=== PATIENT | male | born 1985 | race Caucasian/White ===

== ENCOUNTER 2017-01-18 06:50 | Emergency (ER) | payer SELFPAY ==
--- NOTE | 2017-01-18 07:02 | ED Physician Documentation ---
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 Three days ago started to get bigger. Has started to get a headache associated with it. Patient has tried to puncture the wound several times and has not been able to get anything to express. Patient has a low grade fever yesterday. No chills noted. Area is tender to touch, hurt with movement of facial muscles. Onset: days ago Timing: still present Duration: worse Location: facial Quality: painful, burning Identified Cause?: No - ROS CONST: fever. denies: chills CVS/RESP: denies: shortness of breath - PAST HX Past History: none Other History: none Surgeries/Procedures: No Allergies/Adverse Reactions: Allergies Allergy/AdvReac Type Severity Reaction Status Date / Time No Known Allergies Allergy Verified 01/18/17 07:03 Home Medications: Ambulatory Orders Medication Instructions Recorded Cephalexin [Keflex] 500 mg PO TID #21 capsule 01/18/17 - SOCIAL HX Smoking History: less than 1 pack/day (3/4 ppd) Alcohol Use: none Drug Use: marijuana - FAMILY HX Family History: none - VITAL SIGNS Vital Signs: Vital Signs Temp Pulse Resp BP Pulse Ox 98.3 F 83 20 117/70 98 01/18/17 06:50 01/18/17 06:50 01/18/17 06:50 01/18/17 06:50 01/18/17 06:50 - REVIEWED ASSESSMENTS Nursing Assessment Reviewed: Yes Vitals Reviewed: Yes Procedures Blade Size: 11 I & D Procedure: betadine prep Progress: about 1.5 cc of purulent material express from wound, culture obtained. ED Results Lab/Radiology - Orders Orders: ED Orders Category Date Time Status WOUND CULTURE Routine Lab 01/18/17 07:32 Ordered Lidocaine 1% 5ml(IM or SUTURE) [Xylocaine] Med 01/18/17 07:06 Discontinued 50 mg IJ NOW ONE Naproxen [Naprosyn] Med 01/18/17 07:32 Discontinued 500 mg PO NOW ONE Abscess Physical Exam - EXAM General Appearance: alert, mild distress Skin: warm,dry, other (2 cm abscess to the right cheek area) Location: face Symptoms: tenderness, swelling, induration EENT: No: pharyngeal erythema, pharyngeal swelling Neck: trachea midline Respiratory: no resp distress, chest non-tender, breath sounds normal. No: wheezes, rales, rhonchi CVS: reg. rate & rhythm, heart sounds nml Neuro/Psych: oriented x3, mood/affect nml Discharge Clincal Impression: Abscess Prescriptions: Cephalexin [Keflex] 500 mg PO TID #21 capsule Referrals: Primary Doctor,No [Primary Care Provider] - 2 Days Additional Instructions: Pull the packing out on , try to make sure the skin wound stays open for several days to drain. Cephalexin 500mg tab three times a day for seven days. Dress wound with triple antibiotic ointment, non-adherent gauze pad. Try not to pull the packing out when changing the dressing. If you have any further problems to return to your primary care provider or to the ED. Condition: Stable Disposition: 01 HOME, SELF-CARE Decision to Admit: NO Date of Decison to Admit: 01/18/17 Decision Time: 07:25
[2017-01-18 07:03] VITALS: BP 117/70
[2017-01-18] MEDS ORDERED: Lidocaine 1% 5ml(IM or SUTURE)(PAIN CLINIC) IJ ONE (07:06)
[2017-01-18] MEDS ORDERED: NAPROXEN 250 MG TABLET PO ONE (07:32)
== END 2017-01-18 07:45 | disposition home or self-care (01) ==
LOC: ED 06:50
DX: L02.01 Cutaneous abscess of face (principal)
CPT/HCPCS: 10060; 87070; 99283

== ENCOUNTER 2017-03-09 13:53 | Emergency (ER) | payer SELFPAY ==
[2017-03-09 14:09] VITALS: BP 135/77
--- NOTE | 2017-03-09 14:29 | ED Physician Documentation ---
Ear Complaints - HPI Stated Complaint: L ear pain Chief Complaint: Earache Timing: worse Location of Pain: L ear Severity: severe Associated Symptoms: aching Further Comments: yes (32 year old male patient presents with severe left ear pain x 4 days. Took tylenol and ibuprofen this morning.) - ROS CONST: no problems CVS/RESP: none GI/: denies: nausea, vomiting MS/SKIN/LYMPH: none NEURO/PSYCH: denies: weakness All Systems -: Yes - PAST HX Past History: none Allergies/Adverse Reactions: Allergies Allergy/AdvReac Type Severity Reaction Status Date / Time No Known Allergies Allergy Verified 03/09/17 14:09 Home Medications: Ambulatory Orders Medication Instructions Recorded Amoxicillin [Trimox] 500 mg PO TID #30 capsule 03/09/17 - SOCIAL HX Smoking History: cigarettes - FAMILY HX Family History: No - VITAL SIGNS Vital Signs: Vital Signs Temp Pulse Resp BP Pulse Ox 97.8 F 85 19 135/77 98 03/09/17 13:58 03/09/17 13:58 03/09/17 13:58 03/09/17 13:58 03/09/17 13:58 - REVIEWED ASSESSMENTS Nursing Assessment Reviewed: Yes Vitals Reviewed: Yes Progress - Progress Progress: Patient reports that he does not have prescription insurance. Requesting medication from $4 list Ear Complaint Physical Exam - EXAM General Appearance: mild distress Ear: auricle nml, strip winder.canal nml, right (TM - WNL; post cerumen impaction), left, erythema, loss of landmarks, bulging of TM, total cerumen impaction (right ) Mouth/Throat: other (widespread decay) Resp/CVS: chest non-tender, breath sounds nml, heart sounds nml Skin: nml color, no skin rash Neuro/Psych: oriented x3, mood/affect nml Discharge Clincal Impression: Otitis media Qualifiers: Otitis media type: suppurative Chronicity: acute Laterality: left Recurrence: not specified as recurrent Spontaneous tympanic membrane rupture: without spontaneous rupture Qualified Code(s): H66.002 - Acute suppurative otitis media without spontaneous rupture of ear drum, left ear Prescriptions: Amoxicillin [Trimox] 500 mg PO TID #30 capsule Referrals: Primary Doctor,No [Primary Care Provider] - 2 Days Additional Instructions: 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 Tylenol and ibuprofen as needed for pain Place cotton in the ear canal while showering for the next 4-5 days See your primary care doctor if you symptoms become worse. Condition: Stable Disposition: 01 HOME, SELF-CARE Decision to Admit: NO Decision Time: 14:28
== END 2017-03-09 14:40 | disposition home or self-care (01) ==
LOC: ED 13:53
DX: H66.002 Acute suppurative otitis media without spontaneous rupture of ear drum, left ear (principal)
CPT/HCPCS: 99282